=== PATIENT | female | born 1985 | race Caucasian/White ===

== ENCOUNTER → 2018-05-06 18:55 | Outpatient (CLI) | payer OTHER ==
[2010-10-03 05:42] VITALS: BMI 24.0
== END | disposition home or self-care (01) ==
LOC: D.MAMMO 10:30
DX: N63.21 Unspecified lump in the left breast, upper outer quadrant (principal); N63.24 Unspecified lump in the left breast, lower inner quadrant

== ENCOUNTER → 2018-06-11 08:22 | Outpatient (CLI) | payer OTHER ==
[2010-10-03 05:42] VITALS: BMI 24.0
== END | disposition home or self-care (01) ==
LOC: D.US 05-28 14:00 → D.MAMMO 08:00 → D.US 08:22
DX: R92.8 Other abnormal and inconclusive findings on diagnostic imaging of breast (principal)